=== PATIENT | female | born 1975 | race Caucasian/White ===

== ENCOUNTER 2025-02-24 15:13 | Inpatient (IN) ==
[2025-02-24] MEDS: SODIUM CHLORIDE 0.9% 1,000 ML IV ONE (16:17)
[2025-02-24] MEDS: PROCHLORPERAZINE 2 ML IV ONE (16:17)
[2025-02-24] MEDS: KETOROLAC TROMETHAMINE 15 MG/ML VIAL IV ONE (16:18)
[2025-02-24] MEDS: diphenhydrAMINE 50 MG/ML VIAL IV STA (16:19)
[2025-02-24 16:28] LABS: Hematocrit (blood only) 42.8 % (37.0-47.0); Hemoglobin 15.5 g/dl (12.0-16.0); Immature Granulocytes # (auto) 0.03 K/uL (0.01-0.20); Immature Granulocytes % (auto) 0.3 %; Mean Corpuscular Hemoglobin 34.1 pg (25.0-34.0); Mean Corpuscular Volume 94.3 fL (80.0-100.0); Platelet Count 451 K/uL (130-400); RDW Standard Deviation 43.2 fL (36.4-46.3); Red Blood Count 4.54 M/uL (4.20-5.40); White Blood Count 11.59 K/ul (4.8-10.8)
[2025-02-24 16:35] LABS: INR 0.9 (0.9-1.1); Partial Thromboplastin Time 29 Seconds (21-31); Prothrombin Time 9.8 Seconds (9.0-12.0)
--- NOTE | 2025-02-24 16:54 | Emergency Department Note ---
Impression & Plan Brain TIA ED Provider Note NAME: CHRISTINA GARCIA AGE: 49 SEX: F : 1975 ARRIVES VIA: Walk-In INFORMANT: Patient, ED PROVIDER(S): Qian Olivo MD CHIEF COMPLAINT: Seizure, headache HPI: This is a 49-year-old female seen for seizure and headache. Patient had a seizure about 3 days ago. She has known history of epilepsy and has seizure about once every month. Over the past few seizures, she is increasing episodes, sometimes as many as 2 to 3/month. She reports headache that has not went away. She states that when she has seizures, she sometimes has a headache that resolves fairly quickly. This has persisted. She has no trouble walking, talking or moving extremities. No trauma. Has not missed any doses of her seizure medication. ROS: See above HPI for pertinent positives & negatives. A total of 10 systems reviewed and were otherwise negative. PAST MEDICAL HISTORY: See Below PAST SURGICAL HISTORY: See Below FAMILY HISTORY: See Below SOCIAL HISTORY: See Below HOME MEDICATIONS: See Below ALLERGIES: See Below VITALS: See Below PHYSICAL EXAMINATION: General: resting comfortably in no acute distress Head: Normocephalic and atraumatic Eyes: Normal inspection, extraocular muscles intact Ear, nose, throat: Normal external exam Neck: Normal range of motion Respiratory: lungs clear to auscultation bilaterally Cardiovascular: Regular rate/rhythm, no murmur GI: soft, nontender, no guarding or rebound Extremities: nontender, moves all extremities Neuro: The patient awake and alert, appropriately conversive, no focal deficits, symmetric faces, right motor drift, cranial nerves II through XII intact Skin: Warm, dry, and intact MEDICAL DECISION MAKING: This is a 49-year-old female presenting for seizure/headache. Patient was seizure was 3 days ago, known history of this. Persistent headache however. Neurologic exam is reassuring aside from slight right motor drift with eyes closed. Will do screening workup including CT of the head, CT head and neck. Will do migraine cocktail in case this is Bruce's paralysis. -Bloodwork is reviewed showing no significant leukocytosis, anemia, electrolyte or creatinine abnormality - ECG independently interpreted by me with normal sinus rhythm, rate of 84, normal axis, normal ME, normal QRS, normal QTc, no ST segment elevations consistent with STEMI criteria - CTs of the head/neck revealed no LVO or stenosis. No SAH. There is appear to be prominence of the tonsils/enlarged cervical lymph nodes. Patient describes no symptoms related to this. - Patient's symptoms of moderate have significantly improved and almost resolved. - Discussed care with Dr. Horowitz, neurologist recommends admission for full stroke workup - Discussed case with Dr. Severino for admission Differential diagnosis: Bruce's paralysis, stroke, TIA, SAH, migraine Independent History obtained from: Diagnostics interpreted by me: ECG: see above Cardiac Monitoring: An order was placed for continuous cardiac monitoring. The monitor shows a rate of 59 with sinus rhythm. Past Med/Surg History Problem List (Updated 02/24/25 @ 21:08 by Qian Olivo MD) Brain TIA (Acute) Ankylosing spondylitis Rheumatoid arthritis Medical History Ankylosing spondylitis Rheumatoid arthritis Surgical History No pertinent past surgical history Family History Other Rheumatoid arthritis Social History Smoking Status: Current every day smoker Tobacco Type: Cigarettes Preferred Language: Frisian marital status: Single Current Living Situation: Alone current occupational status: unemployed Feels Safe at Home: Yes Allergies Allergies Allergy/AdvReac Type Severity Reaction Status Date / Time metronidazole [From Flagyl] Allergy Severe Anaphylaxis Verified 03/09/21 16:46 Penicillins Allergy Severe Anaphylaxis Verified 03/09/21 16:46 codeine Allergy Intermediate Hives Verified 03/09/21 16:46 adalimumab [From Humira] Allergy Mild dr said no Verified 03/09/21 16:46 cephalexin [From Keflex] AdvReac Severe Anaphylaxis Verified 03/09/21 16:46 metoclopramide [From Reglan] AdvReac Intermediate Difficulty Verified 03/09/21 16:46 Breathing Home Meds Home Medications Medication Instructions Recorded Confirmed albuterol sulfate 90 mcg/actuation 2 puff inhalation Q4H PRN 02/24/25 02/24/25 aerosol inhaler Shortness Of Breath Or Wheezing certolizumab pegol 400 mg/2 mL 400 mg subcut MONTHLY 02/24/25 02/24/25 (200 mg/mL x2) subcutaneous syringe kit (Cimzia) cyclobenzaprine 5 mg tablet 5 mg PO TID 02/24/25 02/24/25 duloxetine 60 mg capsule,delayed 60 mg PO BID 02/24/25 02/24/25 release folic acid 1 mg tablet 1 mg PO DAILY 02/24/25 02/24/25 lamotrigine 25 mg tablet 25 mg PO BID 02/24/25 02/24/25 melatonin 3 mg tablet 3 mg PO HS 02/24/25 02/24/25 methotrexate sodium 25 mg/mL 20 mg subcut WK 02/24/25 02/24/25 injection solution omeprazole 40 mg capsule,delayed 40 mg PO DAILY 02/24/25 02/24/25 release trazodone 100 mg tablet 200 mg PO HS PRN Insomnia 02/24/25 02/24/25 vilazodone 10 mg tablet 10 mg PO DAILY 02/24/25 02/24/25 Results & Data (ED) Vital Signs Vital Signs - 24 hr 02/24/25 15:15 02/24/25 15:43 02/24/25 16:03 Temperature 36.5 C Temperature Source Temporal Artery Scan Pulse Rate 93 H 78 Pulse Rate [Apical] 78 Respiratory Rate 17 16 Respiratory Effort / Characteristics Non-Labored Spontaneous Non-Labored Spontaneous Respiratory Depth Normal Blood Pressure 132/88 Blood Pressure [Right Arm] 129/84 Blood Pressure Mean 102 Blood Pressure Mean [Right Arm] 99 Pulse Oximetry 97 98 Oxygen Delivery Method Room Air Room Air Sepsis Recent Fever Within 48 Hours No Sepsis New/Unexplained Change in Mental Status N/A Sepsis Action Taken by Nursing No Action Required 02/24/25 17:15 02/24/25 19:00 02/24/25 20:08 Temperature Temperature Source Pulse Rate 59 L Pulse Rate [Apical] 73 72 Respiratory Rate 16 16 Respiratory Effort / Characteristics Non-Labored Spontaneous Respiratory Depth Blood Pressure Blood Pressure [Right Arm] 114/70 140/81 Blood Pressure Mean Blood Pressure Mean [Right Arm] 84 100 Pulse Oximetry 94 98 Oxygen Delivery Method Room Air Sepsis Recent Fever Within 48 Hours Sepsis New/Unexplained Change in Mental Status Sepsis Action Taken by Nursing Laboratory Data 02/24/25 15:40 02/24/25 15:40 Lab Results 02/24/25 Range/Units 15:40 WBC 11.59 H (4.8-10.8) K/ul RBC 4.54 (4.20-5.40) M/uL Hgb 15.5 (12.0-16.0) g/dl Hct 42.8 (37.0-47.0) % MCV 94.3 (80.0-100.0) fL MCH 34.1 H (25.0-34.0) pg MCHC 36.2 H (32.0-36.0) g/dL RDW Std Deviation 43.2 (36.4-46.3) fL RDW Coeff of Wilda 12.6 (11.5-14.5) % Plt Count 451 H (130-400) K/uL MPV 9.6 (9.4-12.4) fL Immature Gran % (Auto) 0.3 % Neut % (Auto) 54.9 % Lymph % (Auto) 39.0 % Starke % (Auto) 4.4 % Eos % (Auto) 0.9 % Baso % (Auto) 0.5 % Neut # (Auto) 6.37 (1.40-6.50) K/uL Lymph # (Auto) 4.52 H (1.20-3.40) K/uL Starke # (Auto) 0.51 (0.11-0.59) K/uL Eos # (Auto) 0.10 (0.00-0.50) K/uL Baso # (Auto) 0.06 (0.00-0.20) K/uL Immature Gran # (Auto) 0.03 (0.01-0.20) K/uL PT 9.8 (9.0-12.0) Seconds INR 0.9 (0.9-1.1) APTT 29 (21-31) Seconds PTT Ratio 1.1 Sodium 142 (136-145) mmol/L Potassium 3.2 L (3.5-5.1) mmol/L Chloride 105 (98-107) mmol/L Carbon Dioxide 29 (21-32) mmol/L Anion Gap 8 (3-11) BUN 6 (6-23) mg/dl Creatinine 0.80 (0.6-1.2) mg/dl Est Cr Clr Drug Dosing 84.8 ml/min eGFR 91.40 BUN/Creatinine Ratio 7.5 L (10-20) Glucose 101 H (70-99(Fasting)) mg/dl Calcium 9.5 (8.6-10.3) mg/dl Magnesium 1.7 (1.7-2.4) mg/dl Total Bilirubin 0.6 (0.2-1.0) mg/dl AST 14 (13-39) U/L ALT 13 (7-52) U/L Alkaline Phosphatase 86 (34-104) U/L Troponin I High Sens 3.0 (0-14) pg/ml Total Protein 7.8 (6.0-8.3) gm/dl Albumin 4.4 (3.4-5.0) gm/dl Globulin 3.4 (2.5-4.0) gm/dl Albumin/Globulin Ratio 1.3 (0.9-2) Administered Medications Discontinued Medications Diphenhydramine HCl (Diphenhydramine 50 Mg/Ml Vial) 25 mg IV NOW STA Stop: 02/24/25 16:12 Last Admin: 02/24/25 16:19 Dose: 25 mg Documented By: GEORGETTE Prochlorperazine (Compazine) 2 mls @ 1 mls/min IV ONE ONE Stop: 02/24/25 16:12 Last Admin: 02/24/25 16:17 Dose: 1 mls/min Documented By: GEORGETTE Sodium Chloride (Nss) 1,000 mls @ 999 mls/hr IV .Q1H1M ONE Stop: 02/24/25 17:12 Last Infusion: 02/24/25 19:04 Dose: Infused Documented By: Admin: 02/24/25 16:17 Dose: 999 mls/hr Documented By: GEORGETTE Ioversol (Optiray 320 125ml) 119 ml IV ONCE ONE Stop: 02/24/25 17:07 Last Admin: 02/24/25 17:07 Dose: 119 ml Documented By: ROBBIE Ketorolac Tromethamine (Ketorolac Tromethamine 15 Mg/Ml Vial) 15 mg IV NOW ONE Stop: 02/24/25 16:12 Last Admin: 02/24/25 16:18 Dose: 15 mg Documented By: GEORGETTE Imaging Data Radiologist's Impression: Head CT 02/24/25 16:11 CT HEAD: HISTORY: Stroke TECHNIQUE: Noncontrast CT examination of the head is performed. Coronal and sagittal reformats were created. COMPARISON: Brain CT September 03, 2023 FINDINGS: There is no evidence of intracranial hemorrhage, focal mass effect or midline shift. No fluid collection is identified. The ventricular system is midline and symmetric. No evidence of acute major vascular territory infarction. No calvarial fracture is identified. The paranasal sinuses and mastoids are well aerated. IMPRESSION: No acute intracranial process identified. Electronically signed by Poncho Lisa 02-24-2025 7:02 PM Head CTA 02/24/25 16:11 HISTORY: Stroke TECHNIQUE: CT angiography of the head and the neck was performed. Coronal and sagittal reformats were created. IV CONTRAST: 100 mL of OMNIPAQUE 300 COMPARISON: None. FINDINGS: CTA HEAD: Stenotic/occlusive disease: None Aneurysm: None Vascular malformation: None CTA NECK: Right carotid: No hemodynamically significant stenosis. Left carotid: No hemodynamically significant stenosis. Vertebrobasilar system: No hemodynamically significant stenosis. Aortic arch and subclavian arteries: No hemodynamically significant stenosis. Nonvascular structures: Enlarged cervical lymph nodes are identified. There is prominence of the palatine tonsils and thickening of the nasopharynx.. Stenosis ranges are derived using NASCET criteria. IMPRESSION: No large vessel occlusion or hemodynamically significant stenosis. Enlarged cervical lymph nodes are identified. There is prominence of the palatine tonsils and thickening of the nasopharynx. Recommend clinical correlation for these findings. This may represent enlarged lymph nodes to possible pharyngitis and palatine tonsillitis however other processes are not excluded based on this imaging alone. Electronically signed by Poncho Lisa 02-24-2025 7:02 PM Neck CTA 02/24/25 16:11 HISTORY: Stroke TECHNIQUE: CT angiography of the head and the neck was performed. Coronal and sagittal reformats were created. IV CONTRAST: 100 mL of OMNIPAQUE 300 COMPARISON: None. FINDINGS: CTA HEAD: Stenotic/occlusive disease: None Aneurysm: None Vascular malformation: None CTA NECK: Right carotid: No hemodynamically significant stenosis. Left carotid: No hemodynamically significant stenosis. Vertebrobasilar system: No hemodynamically significant stenosis. Aortic arch and subclavian arteries: No hemodynamically significant stenosis. Nonvascular structures: Enlarged cervical lymph nodes are identified. There is prominence of the palatine tonsils and thickening of the nasopharynx.. Stenosis ranges are derived using NASCET criteria. IMPRESSION: No large vessel occlusion or hemodynamically significant stenosis. Enlarged cervical lymph nodes are identified. There is prominence of the palatine tonsils and thickening of the nasopharynx. Recommend clinical correlation for these findings. This may represent enlarged lymph nodes to possible pharyngitis and palatine tonsillitis however other processes are not excluded based on this imaging alone. Electronically signed by Poncho Lisa 02-24-2025 7:02 PM Discharge Plan Visit Data Chief Complaint: Headache Stated Complaint: BODY PAIN,HEADACHE,DIGESTIVE ISSUES ED Provider: Qian Olivo Discharge Problem: Brain TIA Patient Disposition: Admitted As Inpatient Condition: Fair Forms Stand Alone Forms: [facility], Important Visit Information Prescriptions Prescriptions: No Action melatonin 3 mg tablet 3 mg PO HS methotrexate sodium 25 mg/mL solution 20 mg subcut WK omeprazole 40 mg capsule,delayed release(DR/EC) 40 mg PO DAILY lamotrigine 25 mg tablet 25 mg PO BID trazodone 100 mg tablet 200 mg PO HS PRN (Reason: Insomnia) folic acid 1 mg tablet 1 mg PO DAILY albuterol sulfate 90 mcg/actuation HFA aerosol inhaler 2 puff INHALATION Q4H PRN (Reason: Shortness Of Breath Or Wheezing) cyclobenzaprine 5 mg tablet 5 mg PO TID duloxetine 60 mg capsule,delayed release(DR/EC) 60 mg PO BID Cimzia 400 mg/2 mL (200 mg/mL x 2) syringe kit 400 mg SUBCUT MONTHLY vilazodone 10 mg tablet 10 mg PO DAILY Referrals Referrals: Melissa Sheikh CRNP [Primary Care Provider] -
[2025-02-24 16:55] LABS: Alanine Aminotransferase 13.0 U/L (7-52); Albumin Globulin Ratio 1.3 (0.9-2); Alkaline Phosphatase 86.0 U/L (34-104); Anion Gap 8.0 (3-11); Bilirubin,Total 0.6 mg/dl (0.2-1.0); Blood Urea Nitrogen 6.0 mg/dl (6-23); Calcium 9.5 mg/dl (8.6-10.3); Carbon Dioxide 29.0 mmol/L (21-32); Chloride 105.0 mmol/L (98-107); Creatinine Clr Calc Pharmacy 84.8 ml/min; Globulin 3.4 gm/dl (2.5-4.0); Glucose 101.0 mg/dl (70-99(Fasting)); Magnesium 1.7 mg/dl (1.7-2.4); Potassium 3.2 mmol/L (3.5-5.1); Sodium 142.0 mmol/L (136-145); Total Protein 7.8 gm/dl (6.0-8.3)
[2025-02-24] MEDS: OPTIRAY 320 125ml IV ONE (17:07)
--- NOTE | 2025-02-24 19:02 | CT Scan Report ---
HISTORY: Stroke TECHNIQUE: CT angiography of the head and the neck was performed. Coronal and sagittal reformats were created. IV CONTRAST: 100 mL of OMNIPAQUE 300 COMPARISON: None. FINDINGS: CTA HEAD: Stenotic/occlusive disease: None Aneurysm: None Vascular malformation: None CTA NECK: Right carotid: No hemodynamically significant stenosis. Left carotid: No hemodynamically significant stenosis. Vertebrobasilar system: No hemodynamically significant stenosis. Aortic arch and subclavian arteries: No hemodynamically significant stenosis. Nonvascular structures: Enlarged cervical lymph nodes are identified. There is prominence of the palatine tonsils and thickening of the nasopharynx.. Stenosis ranges are derived using NASCET criteria. IMPRESSION: No large vessel occlusion or hemodynamically significant stenosis. Enlarged cervical lymph nodes are identified. There is prominence of the palatine tonsils and thickening of the nasopharynx. Recommend clinical correlation for these findings. This may represent enlarged lymph nodes to possible pharyngitis and palatine tonsillitis however other processes are not excluded based on this imaging alone. Electronically signed by Poncho Lisa 02-24-2025 7:02 PM
--- NOTE | 2025-02-24 19:02 | CT Scan Report ---
CT HEAD: HISTORY: Stroke TECHNIQUE: Noncontrast CT examination of the head is performed. Coronal and sagittal reformats were created. COMPARISON: Brain CT September 03, 2023 FINDINGS: There is no evidence of intracranial hemorrhage, focal mass effect or midline shift. No fluid collection is identified. The ventricular system is midline and symmetric. No evidence of acute major vascular territory infarction. No calvarial fracture is identified. The paranasal sinuses and mastoids are well aerated. IMPRESSION: No acute intracranial process identified. Electronically signed by Poncho Lisa 02-24-2025 7:02 PM
--- NOTE | 2025-02-24 21:32 | History & Physical Report ---
Date of Service February 24, 2025 Assessment & Plan (1) Stroke-like symptom: Plan: 49-year-old female with past medical history significant for hyperglycemia, mild persistent asthma, gastroparesis, GERD, endometrial cancer, urinary incontinence, ankylosing spondylitis, rheumatoid arthritis, seizure disorder, lumbar spinal cord injury, fibromyalgia, ongoing tobacco abuse, general anxiety disorder, PTSD, history of pneumonia comes because of headaches. Patient used to get seizures once a month but last month she had several seizures. Had a seizure episode few days back and since then she is having headache. She came to the ER because of the headache. Currently the headache is resolved. In the ER on examination she had some right pronator drift so we were called for admission. Currently on exam there is no right pronator drift. Patient resting comfortably. Hemodynamically stable. No headache currently. No blurred visions or double vision. No runny nose or sore throat. No cough. Has some hoarseness. She is swallowing okay. No chest pain or shortness of breath. Patient states she is feeling full easily after eating. Yesterday she was bloated. Currently bloating is improved. Having diarrhea. Micturating okay. Afebrile. She had a brain MRI without contrast on 01/10/2025 which was unremarkable. She recently saw [facility] neurology on telemedicine for increased seizure frequency and there is a plan for EEG next Tuesday. And plan to increase Lamictal to 50 mg twice daily and to discuss with psychiatry for discontinuation of vilazodone. Also was advised to consider changing Cimzia after discussing with identification and records commander Strokelike symptom Presents with headache since seizure few days back In the ER initially had right pronator drift. Currently no pronator drift seen. CT head. CTA head and neck unremarkable. Headache improved Will do full stroke workup with MRI scan. Echo, telemetry Neuroconsult in a.m. PT OT Possible tonsillitis and thickening of pharynx on the CTA neck Complains of some hoarseness Will do soft tissue CT scan of the neck History of seizures Continue current Lamictal Neuro consulted History of alkalizing spondylitis Rheumatoid arthritis On methotrexate and Cimzia Fibromyalgia Duloxetine PTSD Generalized anxiety disorder On vilazodone and duloxetine Follow-up with psychiatry GERD On omeprazole Mild persistent asthma Continue home inhalers as needed DVT prophylaxis SCDs for now Disposition Telemetry Full code History of Present Illness Chief Complaint: Headache Primary Care Provider: SHERLEY Zuñiga 49-year-old female with past medical history significant for hyperglycemia, mild persistent asthma, gastroparesis, GERD, endometrial cancer, urinary incontinence, ankylosing spondylitis, rheumatoid arthritis, seizure disorder, lumbar spinal cord injury, fibromyalgia, ongoing tobacco abuse, general anxiety disorder, PTSD, history of pneumonia comes because of headaches. Patient used to get seizures once a month but last month she had several seizures. Had a seizure episode few days back and since then she is having headache. She came to the ER because of the headache. Currently the headache is resolved. In the ER on examination she had some right pronator drift so we were called for admission. Currently on exam there is no right pronator drift. Patient resting comfortably. Hemodynamically stable. No headache currently. No blurred visions or double vision. No runny nose or sore throat. No cough. Has some hoarseness. She is swallowing okay. No chest pain or shortness of breath. Patient states she is feeling full easily after eating. Yesterday she was bloated. Currently bloating is improved. Having diarrhea. Micturating okay. Afebrile. She had a brain MRI without contrast on 01/10/2025 which was unremarkable. She recently saw [facility] neurology on telemedicine for increased seizure frequency and there is a plan for EEG next Tuesday. And plan to increase Lamictal to 50 mg twice daily and to discuss with psychiatry for discontinuation of vilazodone. Also was advised to consider changing Cimzia after discussing with identification and records commander Past medical history. As mentioned above. Past social history. Dental surgery. Neurostimulator placed in 2013 and removed in 18. Foot surgery. Appendectomy. . Cholecystectomy. Total abdominal hysterectomy with removal of tubes for uterine cancer. Social history. Smoking currently half pack a day. Started smoking since 1989. No alcohol use. Uses marijuana as per [facility] Family history. Father had COPD. Lung cancer. Mother had lung cancer. Rheumatoid arthritis. Pneumonia. Brother had leukemia. Sister had lung cancer. Paternal grandfather lung cancer. Paternal grandmother had lung cancer. Maternal grandmother had DVT. Son has bipolar disorder. Son has ADHD. . Allergies Allergy/AdvReac Type Severity Reaction Status Date / Time metronidazole [From Flagyl] Allergy Severe Anaphylaxis Verified 03/09/21 16:46 Penicillins Allergy Severe Anaphylaxis Verified 03/09/21 16:46 codeine Allergy Intermediate Hives Verified 03/09/21 16:46 adalimumab [From Humira] Allergy Mild dr said no Verified 03/09/21 16:46 cephalexin [From Keflex] AdvReac Severe Anaphylaxis Verified 03/09/21 16:46 metoclopramide [From Reglan] AdvReac Intermediate Difficulty Verified 03/09/21 16:46 Breathing adhesive tape AdvReac Redness of Verified 02/24/25 22:30 Skin Home Medications Medication Instructions Recorded Confirmed Type albuterol sulfate 90 mcg/actuation 2 puff inhalation Q4H PRN 02/24/25 02/24/25 History aerosol inhaler Shortness Of Breath Or Wheezing certolizumab pegol 400 mg/2 mL 400 mg subcut MONTHLY 02/24/25 02/24/25 History (200 mg/mL x2) subcutaneous syringe kit (Cimzia) cyclobenzaprine 5 mg tablet 5 mg PO TID 02/24/25 02/24/25 History duloxetine 60 mg capsule,delayed 60 mg PO BID 02/24/25 02/24/25 History release folic acid 1 mg tablet 1 mg PO DAILY 02/24/25 02/24/25 History lamotrigine 25 mg tablet 25 mg PO BID 02/24/25 02/24/25 History melatonin 3 mg tablet 3 mg PO HS 02/24/25 02/24/25 History methotrexate sodium 25 mg/mL 20 mg subcut WK 02/24/25 02/24/25 History injection solution omeprazole 40 mg capsule,delayed 40 mg PO DAILY 02/24/25 02/24/25 History release trazodone 100 mg tablet 200 mg PO HS PRN Insomnia 02/24/25 02/24/25 History vilazodone 10 mg tablet 10 mg PO DAILY 02/24/25 02/24/25 History Past Med/Surg History Problem List (Updated 02/24/25 @ 21:28 by Masoud Severino MD) Stroke-like symptom Brain TIA (Acute) Ankylosing spondylitis Rheumatoid arthritis Medical History Ankylosing spondylitis Rheumatoid arthritis Surgical History No pertinent past surgical history Family History Other Rheumatoid arthritis Social History Smoking Status: Current every day smoker Tobacco Type: Cigarettes Cigarettes Per Day: 1/2 pk/day; Hx Alcohol Use: No Hx Substance Use: Yes Preferred Language: Faroese Communication Ability: Effective 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 ENT- oropharynx clear Neck- supple, no JVD. Lungs- clear to auscultation no wheezing or crackles Heart- regular rate and rhythm; no murmur, no gallop. Abdomen- normal bowel sounds, soft, nontender, no distension Extremities- no pretibial edema, no erythema seen Neuro- alert, oriented PERRL, no facial palsy; no dysarthria; motor 5/5 bilaterally; no pronator drift,co ordination of movements normal, sensations intact, position sense intact Results & Data Results & Data Vital Signs (Past 12 Hours) Vital Signs Temp Pulse Pulse Resp BP BP Pulse Ox 02/24/25 20:08 59 L 02/24/25 19:00 72 16 140/81 98 02/24/25 17:15 73 16 114/70 94 02/24/25 16:03 78 02/24/25 15:43 78 16 129/84 98 02/24/25 15:15 36.5 C 93 H 17 132/88 97 O2 Del Method 02/24/25 20:08 02/24/25 19:00 Room Air 02/24/25 17:15 02/24/25 16:03 02/24/25 15:43 Room Air 02/24/25 15:15 Room Air Diagnostic Findings Laboratory Results WBC 11.59 K/ul (4.8-10.8) H 02/24/25 15:40 RBC 4.54 M/uL (4.20-5.40) 02/24/25 15:40 Hgb 15.5 g/dl (12.0-16.0) 02/24/25 15:40 Hct 42.8 % (37.0-47.0) 02/24/25 15:40 MCV 94.3 fL (80.0-100.0) 02/24/25 15:40 MCH 34.1 pg (25.0-34.0) H 02/24/25 15:40 MCHC 36.2 g/dL (32.0-36.0) H 02/24/25 15:40 RDW Std Deviation 43.2 fL (36.4-46.3) 02/24/25 15:40 RDW Coeff of Wilda 12.6 % (11.5-14.5) 02/24/25 15:40 Plt Count 451 K/uL (130-400) H 02/24/25 15:40 MPV 9.6 fL (9.4-12.4) 02/24/25 15:40 Immature Gran % (Auto) 0.3 % 02/24/25 15:40 Neut % (Auto) 54.9 % 02/24/25 15:40 Lymph % (Auto) 39.0 % 02/24/25 15:40 [place] % (Auto) 4.4 % 02/24/25 15:40 Eos % (Auto) 0.9 % 02/24/25 15:40 Baso % (Auto) 0.5 % 02/24/25 15:40 Neut # (Auto) 6.37 K/uL (1.40-6.50) 02/24/25 15:40 Lymph # (Auto) 4.52 K/uL (1.20-3.40) H 02/24/25 15:40 [place] # (Auto) 0.51 K/uL (0.11-0.59) 02/24/25 15:40 Eos # (Auto) 0.10 K/uL (0.00-0.50) 02/24/25 15:40 Baso # (Auto) 0.06 K/uL (0.00-0.20) 02/24/25 15:40 Immature Gran # (Auto) 0.03 K/uL (0.01-0.20) 02/24/25 15:40 PT 9.8 Seconds (9.0-12.0) 02/24/25 15:40 INR 0.9 (0.9-1.1) 02/24/25 15:40 APTT 29 Seconds (21-31) 02/24/25 15:40 PTT Ratio 1.1 02/24/25 15:40 Sodium 142 mmol/L (136-145) 02/24/25 15:40 Potassium 3.2 mmol/L (3.5-5.1) L 02/24/25 15:40 Chloride 105 mmol/L (98-107) 02/24/25 15:40 Carbon Dioxide 29 mmol/L (21-32) 02/24/25 15:40 Anion Gap 8 (3-11) 02/24/25 15:40 BUN 6 mg/dl (6-23) 02/24/25 15:40 Creatinine 0.80 mg/dl (0.6-1.2) 02/24/25 15:40 Est Cr Clr Drug Dosing 84.8 ml/min 02/24/25 15:40 eGFR 91.40 02/24/25 15:40 BUN/Creatinine Ratio 7.5 (10-20) L 02/24/25 15:40 Glucose 101 mg/dl (70-99(Fasting)) H 02/24/25 15:40 Calcium 9.5 mg/dl (8.6-10.3) 02/24/25 15:40 Magnesium 1.7 mg/dl (1.7-2.4) 02/24/25 15:40 Total Bilirubin 0.6 mg/dl (0.2-1.0) 02/24/25 15:40 AST 14 U/L (13-39) 02/24/25 15:40 ALT 13 U/L (7-52) 02/24/25 15:40 Alkaline Phosphatase 86 U/L (34-104) 02/24/25 15:40 Troponin I High Sens 3.0 pg/ml (0-14) 02/24/25 15:40 Total Protein 7.8 gm/dl (6.0-8.3) 02/24/25 15:40 Albumin 4.4 gm/dl (3.4-5.0) 02/24/25 15:40 Globulin 3.4 gm/dl (2.5-4.0) 02/24/25 15:40 Albumin/Globulin Ratio 1.3 (0.9-2) 02/24/25 15:[address] 02/24/25 16:11 CT HEAD: HISTORY: Stroke TECHNIQUE: Noncontrast CT examination of the head is performed. Coronal and sagittal reformats were created. COMPARISON: Brain CT September 03, 2023 FINDINGS: There is no evidence of intracranial hemorrhage, focal mass effect or midline shift. No fluid collection is identified. The ventricular system is midline and symmetric. No evidence of acute major vascular territory infarction. No calvarial fracture is identified. The paranasal sinuses and mastoids are well aerated. IMPRESSION: No acute intracranial process identified. Electronically signed by Poncho Lisa 02-24-2025 7:02 PM Head CTA 02/24/25 16:11 HISTORY: Stroke TECHNIQUE: CT angiography of the head and the neck was performed. Coronal and sagittal reformats were created. IV CONTRAST: 100 mL of OMNIPAQUE 300 COMPARISON: None. FINDINGS: CTA HEAD: Stenotic/occlusive disease: None Aneurysm: None Vascular malformation: None CTA NECK: Right carotid: No hemodynamically significant stenosis. Left carotid: No hemodynamically significant stenosis. Vertebrobasilar system: No hemodynamically significant stenosis. Aortic arch and subclavian arteries: No hemodynamically significant stenosis. Nonvascular structures: Enlarged cervical lymph nodes are identified. There is prominence of the palatine tonsils and thickening of the nasopharynx.. Stenosis ranges are derived using NASCET criteria. IMPRESSION: No large vessel occlusion or hemodynamically significant stenosis. Enlarged cervical lymph nodes are identified. There is prominence of the palatine tonsils and thickening of the nasopharynx. Recommend clinical correlation for these findings. This may represent enlarged lymph nodes to possible pharyngitis and palatine tonsillitis however other processes are not excluded based on this imaging alone. Electronically signed by Poncho Lisa 02-24-2025 7:02 PM Neck CTA 02/24/25 16:11 HISTORY: Stroke TECHNIQUE: CT angiography of the head and the neck was performed. Coronal and sagittal reformats were created. IV CONTRAST: 100 mL of OMNIPAQUE 300 COMPARISON: None. FINDINGS: CTA HEAD: Stenotic/occlusive disease: None Aneurysm: None Vascular malformation: None CTA NECK: Right carotid: No hemodynamically significant stenosis. Left carotid: No hemodynamically significant stenosis. Vertebrobasilar system: No hemodynamically significant stenosis. Aortic arch and subclavian arteries: No hemodynamically significant stenosis. Nonvascular structures: Enlarged cervical lymph nodes are identified. There is prominence of the palatine tonsils and thickening of the nasopharynx.. Stenosis ranges are derived using NASCET criteria. IMPRESSION: No large vessel occlusion or hemodynamically significant stenosis. Enlarged cervical lymph nodes are identified. There is prominence of the palatine tonsils and thickening of the nasopharynx. Recommend clinical correlation for these findings. This may represent enlarged lymph nodes to possible pharyngitis and palatine tonsillitis however other processes are not excluded based on this imaging alone. Electronically signed by Poncho Lisa 02-24-2025 7:02 PM ECG Additional Comments: ECG. Normal sinus rhythm rate of 84. No acute ST changes seen. QTc 449 Code Status & VTE Plan VTE Prophylaxis Plan VTE Prophylaxis will be ordered: Yes
[2025-02-24] MEDS ORDERED: ALBUTEROL HFA 8 GM INHALER INH PRN (22:05)
[2025-02-24] MEDS ORDERED: PHARMACIST DISCHARGE MED REC CONSULT PRN (22:05)
[2025-02-24] MEDS ORDERED: POLYETHYLENE (MIRALAX) 17 GM PACK PO PRN (22:05)
[2025-02-24] MEDS ORDERED: ACETAMINOPHEN 325 MG TAB PO PRN (22:05)
[2025-02-24] MEDS ORDERED: NITROGLYCERIN SL 0.4 MG/TAB TAB SL PRN (22:05)
[2025-02-24] MEDS ORDERED: ACETAMINOPHEN 1,000 MG/100 ML VIAL IV PRN (22:05)
[2025-02-24] MEDS ORDERED: ACETAMINOPHEN 500 MG TAB PO PRN (22:11)
[2025-02-24] MEDS: MELATONIN 3 MG TAB PO SCH (22:31)
[2025-02-24] MEDS: CYCLOBENZAPRINE HCL 5 MG TAB PO STA (22:32)
[2025-02-24] MEDS: SODIUM CHLORIDE 0.9% 1,000 ML IV SCH (22:32)
[2025-02-24] MEDS: lamoTRIgine 25 MG TAB PO STA (22:32)
[2025-02-24] MEDS: POTASSIUM CHLORIDE CRTAB 20 MEQ TABCR PO STA (22:34)
[2025-02-24] MEDS: GADOBUTROL 65ML VIAL IV ONE (23:17)
[2025-02-25] MEDS: NICOTINE 14 MG/24 HR PATCH TD SCH (00:35)
--- NOTE | 2025-02-25 01:41 | Magnetic Resonance Report ---
Exam(s): MRI HEAD W/WO Contrast IV Amt: 8cc gadavist EXAM: MR Head Without and With Intravenous Contrast CLINICAL HISTORY: Reason for exam: cva?. TECHNIQUE: Magnetic resonance images of the head/brain without and with intravenous contrast in multiple planes. CONTRAST: Patient received 8cc gadavist of IV contrast COMPARISON: Prior head CT from February 24, 2025. FINDINGS: Brain: Minimal nonspecific white matter changes. No mass. No hemorrhage. No acute infarct. The flow voids at the base the brain are intact. No evidence of mesial temporal sclerosis, heterotopic ortega matter or cortical dysplasia. No evidence of abnormal enhancement. The dural venous sinuses are patent. Ventricles: Unremarkable. No ventriculomegaly. Bones/joints: Unremarkable. No acute fracture. Cervical lymphadenopathy and prominent lingual tonsils. Sinuses: Chronic ethmoid sinusitis. No acute sinusitis. Mastoid air cells: Unremarkable as visualized. No mastoid effusion. Orbits: Unremarkable as visualized. IMPRESSION: No evidence of acute intracranial pathology. Electronically signed by: Yessi Colon MD 02/25/25 01:40 AM
[2025-02-25 06:10] LABS: Hematocrit (blood only) 36.2 % (37.0-47.0); Hemoglobin 12.9 g/dl (12.0-16.0); Mean Corpuscular Hemoglobin 33.6 pg (25.0-34.0); Mean Corpuscular Volume 94.3 fL (80.0-100.0); Platelet Count 363 K/uL (130-400); RDW Standard Deviation 43.4 fL (36.4-46.3); Red Blood Count 3.84 M/uL (4.20-5.40); White Blood Count 9.32 K/ul (4.8-10.8)
[2025-02-25 06:30] LABS: Anion Gap 5.0 (3-11); Blood Urea Nitrogen 7.0 mg/dl (6-23); Calcium 8.2 mg/dl (8.6-10.3); Carbon Dioxide 26.0 mmol/L (21-32); Chloride 111.0 mmol/L (98-107); Cholesterol 167.0 mg/dl (0-200); Creatinine Clr Calc Pharmacy 105.2 ml/min; Glucose 91.0 mg/dl (70-99(Fasting)); HDL Cholesterol 41.0 mg/dl; Potassium 4.0 mmol/L (3.5-5.1); Sodium 142.0 mmol/L (136-145); Triglycerides 161.0 mg/dl (0-150)
[2025-02-25 06:59] LABS: Immature Granulocytes # (auto) 0.03 K/uL (0.01-0.20); Immature Granulocytes % (auto) 0.3 %
[2025-02-25 08:10] LABS: Hemoglobin A1C 5.7 % (4.5-5.6)
[2025-02-25] MEDS: CYCLOBENZAPRINE HCL 5 MG TAB PO SCH (08:16)
[2025-02-25] MEDS: REMOVE NICODERM PATCH SCH (08:17)
[2025-02-25] MEDS: FOLIC ACID 1 MG TAB PO SCH (08:17)
--- NOTE | 2025-02-25 08:46 | CT Scan Report ---
EXAM: CT soft tissue neck wo con CLINICAL HISTORY: Thickening of pharynx and tonsillia on cta neck. TECHNIQUE: CT scan of the neck was performed without administration of intravenous contrast. Sagittal and coronal reconstructions were obtained. One of the following dose reduction techniques were utilized for this exam: Automated exposure control, adjustment of the mA and/or kV according to patient size, and use of iterative reconstruction. COMPARISON: Prior CT dated 02/24/2025. FINDINGS: Nasopharynx: Smooth adenotonsillar hypertrophy causes obliteration of the airway in the nasopharynx and significant narrowing of the airway in the upper oropharynx. Oropharynx: Rest of the lower airway appears normal. Larynx and Hypopharynx: Normal appearance of the laryngeal structures. Vocal cords are normal in appearance and movement. No masses. Thyroid Gland: Normal size and morphology. No nodules or masses. Salivary Glands: Parotid, submandibular, and sublingual glands are normal in size and appearance. No evidence of sialadenitis or masses. Lymph Nodes: Two prominent lymph nodes measuring 14 x 9 mm at right level II and 16 x 9 mm at left level II. Rest of the bilateral cervical lymph nodes subcentimetric in size. Vascular Structures: Normal appearance of the carotid arteries, jugular veins, and other major vessels. No evidence of vascular malformations or aneurysms. Soft Tissues: Normal appearance of the soft tissues of the neck. No abnormal masses, swelling, or fluid collections. Bones: Mild spondylotic changes in cervical spine. Normal appearance of the cervical spine and surrounding bony structures. No fractures, lytic or sclerotic lesions. Airway: Trachea and main bronchi are patent. No evidence of tracheal or bronchial stenosis or masses. IMPRESSION: Smooth adenotonsillar hypertrophy causing obliteration of the airway in the nasopharynx and significant narrowing of the airway in the upper oropharynx, unchanged, nonspecific, need for clinical correlation. Electronically signed by Surjit Triplett 02-25-2025 08:46 AM
[2025-02-25] MEDS: CALCIUM GLUCONATE 1,000 MG/60 ML BAG IV STA (09:21)
[2025-02-25] MEDS: lamoTRIgine 25 MG TAB PO SCH ×2 (09:21→21:18)
[2025-02-25] MEDS ORDERED: Nursing to Pharmacy Communication SCH (10:30)
[2025-02-25 10:44] LABS: Chlamydia pneumoniae PCR Not Detected (NotDetected); Coronavirus 229E PCR Not Detected (NotDetected); Coronavirus CoV-2 (COVID19)PCR Not Detected (NotDetected); Coronavirus HKU1 PCR Not Detected (NotDetected); Coronavirus NL63 PCR Not Detected (NotDetected); Coronavirus OC43PCR Not Detected (NotDetected); Human Metapneumovirus PCR Not Detected (NotDetected); Parainfluenza Virus 1 PCR Not Detected (NotDetected); Parainfluenza Virus 2 PCR Not Detected (NotDetected); Parainfluenza Virus 3 PCR Not Detected (NotDetected); Parainfluenza Virus 4 PCR Not Detected (NotDetected); Respiratory Syncytial VirusPCR Not Detected (NotDetected); Rhinovirus/Enterovirus PCR Not Detected (NotDetected)
--- NOTE | 2025-02-25 11:16 | Neurology Consultation ---
Date of Consultation February 25, 2025 Assessment & Plan (1) Frequent headaches: 49 yo woman w/ h/o epilepsy who presents for increasing frequency of headaches in setting of breathrough seizure. Follows with [facility] Neurology who are managing increasing seizures and recommended incrasing lamotrigine if new seizure. Di scussion with patient today resulted in decision to discontinue vilazidone and increase lamotrigine. Headaches are likely post-ictal phenomenon and better control of seizures should result in decreasing frequency. Plan -- Increase Lamotrigine to 50 mg BID now, I can touch base with [facility] provider regarding further titration instructions -- Discontinue Vilazidone -- Seizure precautions -- Patient should otherwise follow-up with outpatient EEG Telehealth Consultation Telehealth Information Telehealth Information: I performed this visit using a real-time telehealth connection between my location and the patients location ([facility]). After connecting through interactive tele-video, patient was identified by name and date of and/or wristband check.Patient (or authorized healthcare vendor representatives) was informed that this was a telemedicine visit and it was being conducted confidentially over secure lines. My office door was closed and no one else was present in the room with me.Patient (or authorized healthcare vendor representatives) provided consent to proceed with the visit, expressed an understanding of privacy and security of the telemedicine visit, and gave permission to have a hospital vendor representatives in the room in order to assist with the visit and to conduct portions of the visit, as needed. I informed the patient (or authorized healthcare vendor representatives) that I reviewed their record and presented the opportunity for them to ask any questions regarding the visit today. The patient agreed to participate. History of Present Illness Reason for Consultation: increasing headache frequency Requesting Physician: Dr. Severino Attending Physician: Ronn Evans MD History of Present Illness Copied from admitting H&P: "49-year-old female with past medical history significant for hyperglycemia, mild persistent asthma, gastroparesis, GERD, endometrial cancer, urinary incontinence, ankylosing spondylitis, rheumatoid arthritis, seizure disorder, lumbar spinal cord injury, fibromyalgia, ongoing tobacco abuse, general anxiety disorder, PTSD, history of pneumonia comes because of headaches. Patient used to get seizures once a month but last month she had several seizures. Had a seizure episode few days back and since then she is having headache. She came to the ER because of the headache. Currently the headache is resolved. In the ER on examination she had some right pronator drift so we were called for admission. Currently on exam there is no right pronator drift. Patient resting comfortably. Hemodynamically stable. No headache currently. No blurred visions or double vision. No runny nose or sore throat. No cough. Has some hoarseness. She is swallowing okay. No chest pain or shortness of breath. Patient states she is feeling full easily after eating. Yesterday she was bloated. Currently bloating is improved. Having diarrhea. Micturating okay. Afebrile. She had a brain MRI without contrast on 01/10/2025 which was unremarkable. She recently saw [facility] neurology on telemedicine for increased seizure frequency and there is a plan for EEG next Tuesday. And plan to increase Lamictal to 50 mg twice daily and to discuss with psychiatry for discontinuation of vilazodone. Also was advised to consider changing Cimzia after discussing with gum worker Strokelike symptom Presents with headache since seizure few days back In the ER initially had right pronator drift. Currently no pronator drift seen. CT head. CTA head and neck unremarkable. Headache improved Will do full stroke workup with MRI scan. Echo, telemetry Neuroconsult in a.m. PT OT" Speaking to patient she states she was diagnosed with epilepsy in 2018, no real cause discovered. Has had normal MRIs since. Her headaches are always associated with seizures, they seem to usually get better with ibuprofen. Her most recent seizure was four days ago resulting in a headache that did not improve with ibu, she presented to ED and was treated with migriane cocktail and now headache has resolved. Follows with [facility] neurology and most recent note instructs to consider discontinuing vilazidone and inreasing lamotrigine. She states she is unhappy with the vilazidone and would like to d/c it although it has helped somehwat with anxiety she would rather have her seizures under control. We discussed that lamotrigine at a therapeutic dose can help with anxiety. Allergies Allergy/AdvReac Type Severity Reaction Status Date / Time metronidazole [From Flagyl] Allergy Severe Anaphylaxis Verified 03/09/21 16:46 Penicillins Allergy Severe Anaphylaxis Verified 03/09/21 16:46 codeine Allergy Intermediate Hives Verified 03/09/21 16:46 adalimumab [From Humira] Allergy Mild dr said no Verified 03/09/21 16:46 cephalexin [From Keflex] AdvReac Severe Anaphylaxis Verified 03/09/21 16:46 metoclopramide [From Reglan] AdvReac Intermediate Difficulty Verified 03/09/21 16:46 Breathing adhesive tape AdvReac Redness of Verified 02/24/25 22:30 Skin Home Medications Medication Instructions Recorded Confirmed Type albuterol sulfate 90 mcg/actuation 2 puff inhalation Q4H PRN 02/24/25 02/24/25 History aerosol inhaler Shortness Of Breath Or Wheezing certolizumab pegol 400 mg/2 mL 400 mg subcut MONTHLY 02/24/25 02/24/25 History (200 mg/mL x2) subcutaneous syringe kit (Cimzia) cyclobenzaprine 5 mg tablet 5 mg PO TID 02/24/25 02/24/25 History duloxetine 60 mg capsule,delayed 60 mg PO BID 02/24/25 02/24/25 History release folic acid 1 mg tablet 1 mg PO DAILY 02/24/25 02/24/25 History lamotrigine 25 mg tablet 25 mg PO BID 02/24/25 02/24/25 History melatonin 3 mg tablet 3 mg PO HS 02/24/25 02/24/25 History methotrexate sodium 25 mg/mL 20 mg subcut WK 02/24/25 02/24/25 History injection solution omeprazole 40 mg capsule,delayed 40 mg PO DAILY 02/24/25 02/24/25 History release trazodone 100 mg tablet 200 mg PO HS PRN Insomnia 02/24/25 02/24/25 History vilazodone 10 mg tablet 10 mg PO DAILY 02/24/25 02/24/25 History Patient History Medical History Ankylosing spondylitis Rheumatoid arthritis Surgical History No pertinent past surgical history Family History Other Rheumatoid arthritis Social History Smoking Status: Current every day smoker Tobacco Type: Cigarettes Cigarettes Per Day: 1/2 pk/day; Hx Alcohol Use: No Hx Substance Use: Yes Preferred Language: Greek Communication Ability: Effective Departure Clerk Required: No Beliefs That Will Affect Care: None marital status: Single Current Living Situation: Other Current Living Situation Comment: lives with ex-boyfriend current occupational status: unemployed Feels Safe at Home: Yes Safety Concerns: Feels Safe At This Time Assistive Devices: Glasses Physical Exam Patient awake alert and oriented x 3. Properly conversant, no aphasia or dysarthria, no EOM abnormality, no facial droop. tongue midline. Able to lift all extremities against gravity without drift in any. Reports no sensory defect. No ataxia on finger to nose. Results & Data Vital Signs (Past 12 Hours) Vital Signs Temp Pulse Pulse Resp BP Pulse Ox O2 Del Method 02/25/25 11:05 36.7 C 72 20 119/72 96 Room Air 02/25/25 10:04 56 L 02/25/25 07:26 36.5 C 72 21 117/81 96 Room Air 02/25/25 03:43 36.4 C L 50 L 14 104/70 95 Room Air Laboratory Results Per chart Diagnostic Findings MRI Brain 02/24 - normal MRI
--- NOTE | 2025-02-25 14:01 | Electrocardiogram Report ---
Test Reason : Blood Pressure : */* mmHG Vent. Rate : 84 BPM Atrial Rate : 84 BPM P-R Int : 126 ms QRS Dur : 86 ms QT Int : 380 ms P-R-T Axes : 60 42 50 degrees QTcB Int : 449 ms Normal sinus rhythm Normal ECG When compared with ECG of 14-Aug-2023 08:33, Vent. rate has increased by 35 bpm Confirmed by Jn Christy ([id number]) on 02/25/2025 2:01:00 PM Referred By: REFERRED SELF Confirmed By: Jn Christy
--- NOTE | 2025-02-25 15:08 | Hospitalist Progress Note ---
Date of Service February 25, 2025 Assessment & Plan (1) Stroke-like symptom: Plan: 49-year-old female with past medical history significant for hyperglycemia, mild persistent asthma, gastroparesis, GERD, endometrial cancer, urinary incontinence, ankylosing spondylitis, rheumatoid arthritis, seizure disorder, lumbar spinal cord injury, fibromyalgia, ongoing tobacco abuse, general anxiety disorder, PTSD, history of pneumonia comes because of headaches. Patient used to get seizures once a month but last month she had several seizures. Had a seizure episode few days back and since then she is having headache. She came to the ER because of the headache. Currently the headache is resolved. In the ER on examination she had some right pronator drift so we were called for admission. Currently on exam there is no right pronator drift. Patient resting comfortably. Hemodynamically stable. No headache currently. No blurred visions or double vision. No runny nose or sore throat. No cough. Has some hoarseness. She is swallowing okay. No chest pain or shortness of breath. Patient states she is feeling full easily after eating. Yesterday she was bloated. Currently bloating is improved. Having diarrhea. Micturating okay. Afebrile. She had a brain MRI without contrast on 01/10/2025 which was unremarkable. She recently saw [facility] neurology on telemedicine for increased seizure frequency and there is a plan for EEG next Tuesday. And plan to increase Lamictal to 50 mg twice daily and to discuss with psychiatry for discontinuation of vilazodone. Also was advised to consider changing Cimzia after discussing with fiscal analyst #Epilepsy #Headaches -Presents with headache since seizure few days back -In the ER initially had right pronator drift. Currently no pronator drift seen. -CT head. CTA head and neck unremarkable. MR head unremarkable -per neurology headaches likely related to seizure disorder Plan: -neurology consulted, appreciate recs -increase lamotrogine to 50 bid, stop Vilazidone -PT/OT. f/u outpatient for EEG and further workup #Airway Obstruction -Complains of some hoarseness, otherwise asymptomatic -this provider ordered viral and strep workup, both negative -discussed with pulmonology, recommend ENT evaluation Plan: -ENT consulted, appreciate recs -speech consult, appreciate recs History of alkalizing spondylitis Rheumatoid arthritis -On methotrexate and Cimzia Fibromyalgia -Duloxetine PTSD Generalized anxiety disorder -On vilazodone and duloxetine -Follow-up with psychiatry GERD -On omeprazole Mild persistent asthma -Continue home inhalers as needed I spent a total of 50 minutes in direct patient care, including [id number] time with the patient and/or family, reviewing medical records, ordering and reviewing diagnostic tests, and coordinating care with other healthcare providers. This time includes: history taking, physical examination, medical decision making, counseling, ECG interpretation, imaging interpretation, lab interpretation, orders, and education, excluding time spent in the performance of separately billed services. Admission and Anticipated Discharge Date Admission Date: February 24, 2025 Subjective Patient seen and examined at bedside. Patient doing well today. headache is improved. No issues with swallowing or breathing. Does have some hoarseness. Review of Systems Review of Systems: CONSTITUTIONAL: Patient denies fevers, chills, sweats and weight changes. EYES: Patient denies any visual symptoms. EARS, NOSE, AND THROAT: hoarseness CARDIOVASCULAR: Patient denies chest pains, palpitations, orthopnea and paroxysmal nocturnal dyspnea. RESPIRATORY: No dyspnea on exertion, no wheezing or cough. GI: No nausea, vomiting, diarrhea, constipation, abdominal pain, hematochezia or melena. : No urinary hesitancy or dribbling. No nocturia or urinary frequency. No abnormal urethral discharge. MUSCULOSKELETAL: No myalgias or arthralgias. NEUROLOGIC: No chronic headaches, no seizures. Patient denies numbness, tingling or weakness. PSYCHIATRIC: Patient denies problems with mood disturbance. No problems with anxiety. ENDOCRINE: No excessive urination or excessive thirst. DERMATOLOGIC: Patient denies any rashes or skin changes. Physical Exam Physical Exam: Gen: A&O 3 NAD HEENT: NCAT, EOMI, not icteric. External ears normal. No rhinorrhea. Moist mucous membranes. Neck: Supple, full range of motion, no observable masses, No meningeal sign. Lungs: No Respiratory distress. CV: RRR, no edema. Abdomen: Soft, nondistended, No rebound tenderness. MSK: No joint swelling, no redness. Skin: No rashes, petechiae, lesions. Normal color per patient. Neuro: Normal Gait, Grossly intact. Psych: Appropriate for situation. Results & Data Results & Data Vital Signs (Past 12 Hours) Vital Signs Temp Pulse Pulse Resp BP Pulse Ox O2 Del Method 02/25/25 13:50 60 02/25/25 11:05 36.7 C 72 20 119/72 96 Room Air 02/25/25 10:04 56 L 02/25/25 07:26 36.5 C 72 21 117/81 96 Room Air 02/25/25 03:43 36.4 C L 50 L 14 104/70 95 Room Air Laboratory Results -personally reviewed, no leukocytosis, creatinine at baseline Medications Administered Cyclobenzaprine HCl (Cyclobenzaprine Hcl 5 Mg Tab) 5 mg PO TID CALLUM Stop: 03/27/25 08:59 Last Admin: 02/25/25 13:34 Dose: 5 mg Documented By: Admin: 02/25/25 08:16 Dose: 5 mg Documented By: DAYO Folic Acid (Folic Acid 1 Mg Tab) 1 mg PO DAILY CALLUM Stop: 03/27/25 08:59 Last Admin: 02/25/25 08:17 Dose: 1 mg Documented By: DAYO Melatonin (Melatonin 3 Mg Tab) 3 mg PO HS CALLUM Stop: 03/26/25 22:04 Last Admin: 02/24/25 22:31 Dose: 3 mg Documented By: ANGUS Miscellaneous (Vilazodone 10 Mg - Order Awaiting Action) 1 each N/A QS CALLUM Stop: 03/27/25 00:00 Last Admin: 02/25/25 08:16 Dose: Not Given Documented By: Admin: 02/25/25 00:34 Dose: Not Given Documented By: ANGUS Miscellaneous (Remove Nicoderm Patch) 1 each N/A DAILY@0859 [facility] Stop: 03/27/25 08:58 Last Admin: 02/25/25 08:17 Dose: 1 each Documented By: DAYO Nicotine (Nicotine 14 Mg/24 Hr Patch) 1 patch TD DAILY CALLUM Stop: 03/27/25 00:14 Last Admin: 02/25/25 08:16 Dose: 1 patch Documented By: Admin: 02/25/25 00:35 Dose: 1 patch Documented By: ANGUS Pantoprazole Sodium (Pantoprazole 40 Mg Tab) 40 mg PO DAILY CALLUM Stop: 03/27/25 08:59 Last Admin: 02/25/25 08:17 Dose: 40 mg Documented By: DAYO Trazodone HCl (Trazodone Hcl 100 Mg Tab) 200 mg PO HS PRN PRN Reason: Insomnia Stop: 03/26/25 22:04 Last Admin: 02/24/25 22:32 Dose: 200 mg Documented By: ANGUS
[2025-02-26 06:27] LABS: Hematocrit (blood only) 39.1 % (37.0-47.0); Hemoglobin 13.7 g/dl (12.0-16.0); Immature Granulocytes # (auto) 0.03 K/uL (0.01-0.20); Immature Granulocytes % (auto) 0.3 %; Mean Corpuscular Hemoglobin 33.3 pg (25.0-34.0); Mean Corpuscular Volume 94.9 fL (80.0-100.0); Platelet Count 392 K/uL (130-400); RDW Standard Deviation 43.6 fL (36.4-46.3); Red Blood Count 4.12 M/uL (4.20-5.40); White Blood Count 9.05 K/ul (4.8-10.8)
[2025-02-26 06:49] LABS: Alanine Aminotransferase 9.0 U/L (7-52); Albumin Globulin Ratio 1.5 (0.9-2); Alkaline Phosphatase 65.0 U/L (34-104); Anion Gap 5.0 (3-11); Bilirubin,Total 0.4 mg/dl (0.2-1.0); Blood Urea Nitrogen 8.0 mg/dl (6-23); Calcium 8.8 mg/dl (8.6-10.3); Carbon Dioxide 28.0 mmol/L (21-32); Chloride 109.0 mmol/L (98-107); Creatinine Clr Calc Pharmacy 91.7 ml/min; Globulin 2.6 gm/dl (2.5-4.0); Glucose 87.0 mg/dl (70-99(Fasting)); Magnesium 1.9 mg/dl (1.7-2.4); Potassium 4.4 mmol/L (3.5-5.1); Sodium 142.0 mmol/L (136-145); Total Protein 6.4 gm/dl (6.0-8.3)
[2025-02-26 07:38] VITALS: PULSE 85; RESP 20; TEMP 97.3; O2SAT 96
[2025-02-26 14:14] VITALS: BP 147/83
--- NOTE | 2025-02-26 17:45 | Discharge Summary ---
Discharge Summary Date of Service February 26, 2025 Principal Dx & Hospital Course #1 = Principal Diagnosis (1) Stroke-like symptom: 49-year-old female with past medical history significant for hyperglycemia, mild persistent asthma, gastroparesis, GERD, endometrial cancer, urinary incontinence, ankylosing spondylitis, rheumatoid arthritis, seizure disorder, lumbar spinal cord injury, fibromyalgia, ongoing tobacco abuse, general anxiety disorder, PTSD, history of pneumonia comes because of headaches. Patient used to get seizures once a month but last month she had several seizures. Had a seizure episode few days back and since then she is having headache. She came to the ER because of the headache. Currently the headache is resolved. In the ER on examination she had some right pronator drift so we were called for admission. Currently on exam there is no right pronator drift. Patient resting comfortably. Hemodynamically stable. No headache currently. No blurred visions or double vision. No runny nose or sore throat. No cough. Has some hoarseness. She is swallowing okay. No chest pain or shortness of breath. Patient states she is feeling full easily after eating. Yesterday she was bloated. Currently bloating is improved. Having diarrhea. Micturating okay. Afebrile. She had a brain MRI without contrast on 01/10/2025 which was unremarkable. [facility] on [facility]medicine for increased seizure frequency and there is a plan for EEG next Tuesday. And plan to increase Lamictal to 50 mg twice daily and to discuss with psychiatry for discontinuation of vilazodone. Also was advised to consider changing Cimzia after discussing with ballistic technician #Epilepsy #Headaches -Presents with headache since seizure few days back -In the ER initially had right pronator drift. Currently no pronator drift seen. -CT head. CTA head and neck unremarkable. MR head unremarkable -per neurology headaches likely related to seizure disorder Plan: -neurology consulted, appreciate recs -increase lamotrogine to 50 bid, stop Vilazidone -PT/OT. f/u outpatient for EEG and further workup #Airway Obstruction -Complains of some hoarseness, otherwise asymptomatic -this provider ordered viral and strep workup, both negative -discussed with pulmonology, recommend ENT evaluation Plan: -ENT consulted, appreciate recs -speech consult, appreciate recs History of alkalizing spondylitis Rheumatoid arthritis -On methotrexate and Cimzia Fibromyalgia -Duloxetine PTSD Generalized anxiety disorder -On vilazodone and duloxetine -Follow-up with psychiatry GERD -On omeprazole Mild persistent asthma -Continue home inhalers as needed Notes For Next Care Provider 49-year-old female with past medical history significant for hyperglycemia, mild persistent asthma, gastroparesis, GERD, endometrial cancer, urinary incontinence, ankylosing spondylitis, rheumatoid arthritis, seizure disorder, lumbar spinal cord injury, fibromyalgia, ongoing tobacco abuse, general anxiety disorder, PTSD, history of pneumonia comes because of headaches. Admitted to medicine for stroke rule out. On medicine, neurology consulted, recommended increasing lamotrigine for headaches. Noted small airway, discussed case with ENT, recommended f/u outpatient after review of imaging. On 02/26/2025 patient tolerated lamotrigine well, medically stable for discharge home. To do: [ ] f/u with neurology, ENT [ ] BMP outpatient given increased dose of lamotrigine Medication Changes From Visit -see below Admission HPI Per Admitting Provider 49-year-old female with past medical history significant for hyperglycemia, mild persistent asthma, gastroparesis, GERD, endometrial cancer, urinary i ncontinence, ankylosing spondylitis, rheumatoid arthritis, seizure disorder, lumbar spinal cord injury, fibromyalgia, ongoing tobacco abuse, general anxiety disorder, PTSD, history of pneumonia comes because of headaches. Patient used to get seizures once a month but last month she had several seizures. Had a seizure episode few days back and since then she is having headache. She came to the ER because of the headache. Currently the headache is resolved. In the ER on examination she had some right pronator drift so we were called for admission. Currently on exam there is no right pronator drift. Patient resting comfortably. Hemodynamically stable. No headache currently. No blurred visions or double vision. No runny nose or sore throat. No cough. Has some hoarseness. She is swallowing okay. No chest pain or shortness of breath. Patient states she is feeling full easily after eating. Yesterday she was bloated. Currently bloating is improved. Having diarrhea. Micturating okay. Afebrile. She had a brain MRI without contrast on 01/10/2025 which was unremarkable. She recently saw [facility] neurology on telemedicine for increased seizure frequency and there is a plan for EEG next Tuesday. And plan to increase Lamictal to 50 mg twice daily and to discuss with psychiatry for discontinuation of vilazodone. Also was advised to consider changing Cimzia after discussing with ballistic technician Past medical history. As mentioned above. Past social history. Dental surgery. Neurostimulator placed in 2013 and removed in 18. Foot surgery. Appendectomy. . Cholecystectomy. Total abdominal hysterectomy with removal of tubes for uterine cancer. Social history. Smoking currently half pack a day. Started smoking since 1989. No alcohol use. Uses marijuana as per [facility] Family history. Father had COPD. Lung cancer. Mother had lung cancer. Rheumatoid arthritis. Pneumonia. Brother had leukemia. Sister had lung cancer. Paternal grandfather lung cancer. Paternal grandmother had lung cancer. Maternal grandmother had DVT. Son has bipolar disorder. Son has ADHD. . Discharge Exam Gen: A&O 3 NAD HEENT: NCAT, EOMI, not icteric. External ears normal. No rhinorrhea. Moist mucous membranes. Neck: Supple, full range of motion, no observable masses, No meningeal sign. Lungs: No Respiratory distress. CV: RRR, no edema. Abdomen: Soft, nondistended, No rebound tenderness. MSK: No joint swelling, no redness. Skin: No rashes, petechiae, lesions. Normal color per patient. Neuro: Normal Gait, Grossly intact. Psych: Appropriate for situation. Updated Medication List Medication Instructions Recorded Confirmed Type albuterol sulfate 90 mcg/actuation 2 puff inhalation Q4H PRN 02/24/25 02/24/25 History aerosol inhaler Shortness Of Breath Or Wheezing certolizumab pegol 400 mg/2 mL 400 mg subcut MONTHLY 02/24/25 02/24/25 History (200 mg/mL x2) subcutaneous syringe kit (Cimzia) cyclobenzaprine 5 mg tablet 5 mg PO TID 02/24/25 02/24/25 History duloxetine 60 mg capsule,delayed 60 mg PO BID 02/24/25 02/24/25 History release folic acid 1 mg tablet 1 mg PO DAILY 02/24/25 02/24/25 History melatonin 3 mg tablet 3 mg PO HS 02/24/25 02/24/25 History methotrexate sodium 25 mg/mL 20 mg subcut WK 02/24/25 02/24/25 History injection solution omeprazole 40 mg capsule,delayed 40 mg PO DAILY 02/24/25 02/24/25 History release trazodone 100 mg tablet 200 mg PO HS PRN Insomnia 02/24/25 02/24/25 History vilazodone 10 mg tablet 10 mg PO DAILY 02/24/25 02/24/25 History lamotrigine 25 mg tablet (Lamictal) 50 mg (2 x 25 mg) PO BID #60 tabs 02/26/25 Rx Hospital Stay Data Consultations 02/24/25 20:22 ED Decision to Admit Stat 02/25/25 09:00 Consult Neurology Routine Diagnostic Imagining Performed 02/24/25 16:11 CT angio head w con Stat CT angio neck with con Stat CT head/brain wo con Stat 02/24/25 22:05 MR brain wo/w con Routine 02/25/25 08:00 CT neck soft tissues [CT soft tissue neck wo con] Routine Pending Results Patient Have Any Pending Studies at Discharge: No Discharge Instructions Given to Patient (Per Discharging Provider) 1. Please follow up with PCP, neurology, ENT. 2. Please take medications as prescribed. Total Time Total Time Spent Total Time Spent (In Minutes): I spent a total of 35 minutes in direct patient care, including [id number] time with the patient and/or family, reviewing medical records, ordering and reviewing diagnostic tests, and coordinating care with other healthcare providers. This time includes: history taking, physical examination, medical decision making, counseling, ECG interpretation, imaging interpretation, lab interpretation, orders, and education, excluding time spent in the performance of separately billed services.
== END 2025-02-26 15:00 | disposition home or self-care (01) | DRG 103 ==
LOC: ED 15:13 → 4W 21:01